=== PATIENT | male | born 1980 | race American Indian/Alaskan Native ===

== ENCOUNTER 2017-05-08 08:22 | Emergency (ER) | payer SELFPAY ==
[2017-05-08 08:23] VITALS: BMI 37.4
--- NOTE | 2017-05-08 08:50 | ED PDOC ---
Arrival/HPI - History of Present Illness Time/Duration: 1-3 hours Symptom Onset: Sudden Symptom Course: Unchanged Context: Walking <GonzalodoyleCrystal - Last Filed: 05/08/17 13:41> <Bo Preciado - Last Filed: 05/08/17 14:04> - General Time Seen by Provider: 05/08/17 08:25 - History of Present Illness Narrative History of Present Illness (Text): 36 year old male with no significant medical history presents for "dizziness" that began about 3 hours ago. Patient states that dizziness began all of a sudden when he was going to work. He describes dizziness as the room is spinning and he feels unsteady on his feet. Symptoms have not improved since they began. Patient has never experienced this before. Patient states that for past 2 weeks, he has had episodes of falling asleep at random times throughout the day lasting a few minutes. Patient also states that yesterday he had an episode of sharp MILES that lasted a few minutes and improved on its own. Patient denies having any MILES right now, no focal deficit, no speech changes, no vision or hearing changes, no tinnitus, no N/V/D/C, abd pain, CP. 05/08/17 09:14 (Crystal Paz) Past Medical History - Provider Review Nursing Documentation Reviewed: Yes - Past Medical History Past Medical History: No Previous - Psychiatric Hx Depression: No Hx Emotional Abuse: No Hx Physical Abuse: No - Past Surgical History Past Surgical History: No Previous - Suicidal Assessment Feels Threatened In Home Enviroment: No <Crystal Paz - Last Filed: 05/08/17 13:41> Family/Social History - Physician Review Nursing Documentation Reviewed: Yes Family/Social History: Unknown Family HX Smoking Status: Current Some Days Smoker Hx Alcohol Use: No Hx Substance Use: No <Amn Brandia - Last Filed: 05/08/17 13:41> Allergies/Home Meds <Amn Brandia - Last Filed: 05/08/17 13:41> <Bo Preciado - Last Filed: 05/08/17 14:04> Allergies/Adverse Reactions: Allergies No Known Allergies Allergy (Verified 05/08/17 08:34) Home Medications: Home Meds Medication Instructions Recorded Confirmed No Known Home Med 05/08/17 05/08/17 Review of Systems - Review of Systems Constitutional: Normal Eyes: Normal. absent: Vision Changes ENT: Normal. absent: Hearing Changes, Tinnitus, Sore Throat, Rhinorrhea Respiratory: Normal. absent: SOB, Cough Cardiovascular: Normal. absent: Chest Pain, Palpitations, Edema Gastrointestinal: Normal. absent: Abdominal Pain, Constipation, Diarrhea Genitourinary Male: Normal. absent: Dysuria, Frequency Musculoskeletal: Normal. absent: Neck Pain Skin: Normal. absent: Rash, Pruritis Neurological: Dizziness, Disequilibrium. absent: Headache, Gait Changes, Speech Changes, Facial Droop, Seizure Endocrine: Normal. absent: Diaphoresis Psychiatric: Normal. absent: Anxiety, Depression <Karim,Crystal - Last Filed: 05/08/17 13:41> Physical Exam Temperature: Afebrile Blood Pressure: Normal Pulse: Regular Respiratory Rate: Normal Appearance: Positive for: Well-Appearing, Non-Toxic, Comfortable Pain Distress: None Mental Status: Positive for: Alert and Oriented X 3 - Systems Exam Head: Present: Atraumatic, Normocephalic. No: Tenderness, Contusion Pupils: Present: PERRL Extroacular Muscles: Present: EOMI. No: Gaze Palsy Conjunctiva: Present: Normal. No: Injected, Icteric Mouth: Present: Moist Mucous Membranes. No: Dry, Drooling, Trismus, Normal Tounge Neck: Present: Normal Range of Motion. No: MIDLINE TENDERNESS, Paraspinal Tenderness, Lymphadenopathy Respiratory/Chest: Present: Clear to Auscultation, Good Air Exchange, Respiratory Distress, Accessory Muscle Use. No: Wheezes, Rales, Retracting, Rhonchi Cardiovascular: Present: Regular Rate and Rhythm, Normal S1, S2. No: Murmurs, Irregular Rhythm, Rub, Gallop Abdomen: Present: Normal Bowel Sounds. No: Tenderness, Distention, Peritoneal Signs Upper Extremity: Present: Normal Inspection. No: Cyanosis, Edema Lower Extremity: Present: Normal Inspection. No: Edema, CALF TENDERNESS Neurological: Present: GCS=15, CN II-XII Intact, Speech Normal, Motor Func Grossly Intact, Normal Sensory Function, Normal Cerebellar Funct, Gait Normal, Memory Normal, Normal 2Pt Descrimination Skin: Present: Warm, Dry, Normal Color. No: Rashes, Hot, Cold, Laceration Psychiatric: Present: Alert, Oriented x 3, Normal Insight, Normal Concentration , Normal Affect, Normal Mood. No: Anxious, Agitated <Crystal Paz - Last Filed: 05/08/17 13:41> Medical Decision Making Re-evaluation Time: 11:00 Reassessment Condition: Improved - Lab Interpretations I have reviewed the lab results: Yes - EKG Interpretation Interpreted by ED Physician: Yes Type: 12 lead EKG <Crystal Paz - Last Filed: 05/08/17 13:41> - Lab Interpretations I have reviewed the lab results: Yes - EKG Interpretation Interpreted by ED Physician: Yes Type: 12 lead EKG <Bo Preciado - Last Filed: 05/08/17 14:04> ED Course and Treatment: Will check EKG, CT head, CMP, CBC, urinalysis, UDS, cardiac troponins, finger stick and orthostatic Patient will be given Meclazine 25 mg po stat 05/08/17 09:22 05/08/17 11:05 CT of head is negative. Labs are WNL. EKG was NSR no ST changes. Patient was given Meclizine and 1L NS bolus. Patient states dizziness has improved. ( Crystal Paz) 05/08/17 09:31 In agreement with resident note, which includes further HPI details. Patient was seen and evaluated with resident, came up with plan and treatment together. Patient presents for "dizziness", unsteady on his feet, and headache. Plan: -- EKG -- Head CT -- Labs -- Urinalysis -- Finger stick -- Orthostatic -- Reassess and disposition EKG shows NSR at [address]-segment elevations, normal intervals, normal axis. Interpreted by me. 05/08/17 11:05 On reevaluation, patient no longer have dizziness. He is able to walk without ataxia. Will discharge patient home with PMD f/u. (Bo Preciado) - Lab Interpretations Lab Results: 05/08/17 09:20 05/08/17 09:20 Lab Results 05/08/17 09:20: WBC 7.9, RBC 4.95, Hgb 14.8, Hct 43.0, MCV 86.9, MCH 29.9, MCHC 34.4, RDW 13.3, Plt Count 230, MPV 9.2 05/08/17 09:20: Sodium 142, Potassium 3.8, Chloride 104, Carbon Dioxide 27, Anion Gap 15, BUN 11, Creatinine 0.6, Est GFR ( Amer) > 60, Est GFR (Non- Af Amer) > 60, Random Glucose 124 H, Calcium 9.1, Total Bilirubin 0.7, AST 26, ALT 27, Alkaline Phosphatase 73, Total Protein 7.4, Albumin 4.2, Globulin 3.2, Albumin/Globulin Ratio 1.3 - RAD Interpretation Radiology Orders: 05/08/17 09:00 HEAD W/O CONTRAST [CT] Stat - EKG Interpretation EKG Interpretation (Text): NSR HR [address] changes. Right superior axis deviation 05/08/17 09:23 (Crystal Paz) - Medication Orders Current Medication Orders: Discontinued Medications Sodium Chloride (Sodium Chloride 0.9%) 1,000 mls @ 999 mls/hr IV .Q1H1M STA Stop: 05/08/17 10:27 Last Admin: 05/08/17 09:49 Dose: 999 mls/hr Meclizine HCl (Antivert) 25 mg PO STAT STA Stop: 05/08/17 09:02 Last Admin: 05/08/17 09:29 Dose: 25 mg Disposition/Present on Arrival - Present on Arrival Any Indicators Present on Arrival: No History of DVT/PE: No History of Uncontrolled Diabetes: No Urinary Catheter: No History Surgical Site Infection Following: None - Disposition Have Diagnosis and Disposition been Completed?: Yes Disposition Time: 11:06 Patient Plan: Discharge <Crystal Paz - Last Filed: 05/08/17 13:41> <Bo Preciado - Last Filed: 05/08/17 14:04> - Disposition Diagnosis: Dizziness Disposition: HOME/ ROUTINE Condition: GOOD Additional Instructions: Gavino Guardado, thank you for letting us take care of you today. Your provider was Crystal Paz. You were treated for dizziness. The emergency medical care you received today was directed at your acute symptoms. If you were prescribed any medication, please fill it and take as directed. It may take several days for your symptoms to resolve. Return to the Emergency Department if your symptoms worsen, do not improve, or if you have any other problems. Please contact your doctor or call one of the physicians/clinics you have been referred to that are listed on the Patient Visit Information form that is included in your discharge packet. Bring any paperwork you were given at discharge with you along with any medications you are taking to your follow up visit. Our treatment cannot replace ongoing medical care by a primary care provider (PCP) outside of the emergency department. Thank you for allowing the [facility] team to be part of your care today. If you had an X-Ray or CT scan: A Radiologist will review the ED reading if any change in treatment is needed we will contact you. If you had a blood, urine, or wound culture: It will take several days for the results, if any change in treatment is needed we will contact you. If you had an STI test: It will take 48 hours for the results. Please call after 1 week if you have not heard back. Referrals: PCP,NO [Primary Care Provider] - Follow up with primary Forms: WORK NOTE
[2017-05-08] MEDS ORDERED: Sodium Chloride 0.9% 1,000 ML IV STA (09:27)
[2017-05-08 09:36] LABS: HEMOGLOBIN 14.8 gm/dL (14.0-18.0); MEAN CELL VOLUME 86.9 fL (80.0-105.0); MEAN CORPUSCULAR HEMOGLOBIN 29.9 pg (25.0-35.0); MEAN CORPUSCULAR HGB CONC 34.4 g/dl (31.0-37.0); MEAN PLATELET VOLUME 9.2 fl (7.0-11.0); RBC 4.95 10^6/uL (3.5-6.1); RED CELL DISTRIBUTION WIDTH 13.3 % (11.5-14.5); WHITE BLOOD COUNT 7.9 10^3/ul (4.5-11.0)
[2017-05-08 09:39] LABS: ALB/GLOB RATIO 1.3 (1.1-1.8); ALBUMIN 4.2 g/dL (3.0-4.8); ALT/SGPT 27 U/L (7-56); AST/SGOT 26 U/L (15-59); BLOOD UREA NITROGEN 11 mg/dL (7-21); CALCIUM 9.1 mg/dL (8.4-10.5); GFR AFRICAN-AMERICAN > 60; GFR NON-AFRICAN AMERICAN > 60
--- NOTE | 2017-05-08 09:53 | CT ---
PROCEDURE: CT HEAD WITHOUT CONTRAST. HISTORY: dizziness COMPARISON: None available. TECHNIQUE: Axial computed tomography images were obtained through the head/brain without intravenous contrast. Radiation dose: Total exam DLP = 734 mGy-cm. This CT exam was performed using one or more of the following dose reduction techniques: Automated exposure control, adjustment of the mA and/or kV according to patient size, and/or use of iterative reconstruction technique. FINDINGS: HEMORRHAGE: No intracranial hemorrhage. BRAIN: No mass effect or edema. No atrophy or chronic microvascular ischemic changes. VENTRICLES: Unremarkable. No hydrocephalus. CALVARIUM: Unremarkable. PARANASAL SINUSES: Unremarkable as visualized. No significant inflammatory changes. MASTOID AIR CELLS: Unremarkable as visualized. No inflammatory changes. OTHER FINDINGS: The report concurs with the preliminary [facility] report IMPRESSION: Normal CT of the Head.
[2017-05-08 11:38] VITALS: BP 110/65; PULSE 64; RESP 16; TEMP 98; O2SAT 100
--- NOTE | 2017-05-08 15:59 | CARD ---
APPROVED REPORT EKG Measurement Heart [id number] AL 144P [id number] <Conclusion> Normal sinus rhythm Limb lead reversal.
== END 2017-05-08 11:55 | disposition home or self-care (01) ==
LOC: ED 08:22
DX: R42 Dizziness and giddiness (principal)
CPT/HCPCS: 70450; 80053; 82948; 85027; 93005; 96360; 99285; J7040

== ENCOUNTER 2018-07-17 15:59 | Emergency (ER) | payer BC ==
[2018-07-17 16:00] VITALS: BMI 37.4
[2018-07-17 16:11] VITALS: RESP 18; TEMP 99
--- NOTE | 2018-07-17 16:40 | ED PDOC ---
Arrival/HPI - General Historian: Patient - History of Present Illness Narrative History of Present Illness (Text): 07/17/18 16:37 Patient is a47yo male with no pmhx who present with complaint of lower back pain x 2days that radiates to his right lower leg. He reports history of same pain. states he was given epidural 3years ago and the pain resolved and then started again 2days ago. States he went to his PMD's office for pain medication, but he was permanently closed. he denies trauma, focal weakness, urinary symptoms, saddle anesthesia, urinary symptoms, abdominal pain, any other complaint. <Siri Hummel A - Last Filed: 07/17/18 16:37> <Eric Mayorga - Last Filed: 07/24/18 05:37> - General Chief Complaint: Back Pain Time Seen by Provider: 07/17/18 16:21 Past Medical History - Provider Review Nursing Documentation Reviewed: Yes - Infectious Disease Hx of Infectious Diseases: None - Past Medical History Past Medical History: No Previous - Psychiatric Hx Depression: No Hx Emotional Abuse: No Hx Physical Abuse: No Hx Substance Use: No - Past Surgical History Past Surgical History: No Previous - Suicidal Assessment Feels Threatened In Home Enviroment: No <DiruHappiness A - Last Filed: 07/17/18 16:37> Family/Social History - Physician Review Nursing Documentation Reviewed: Yes Family/Social History: Unknown Family HX Smoking Status: Current Some Days Smoker Hx Alcohol Use: Yes Hx Substance Use: No <DiruHappiness A - Last Filed: 07/17/18 16:37> Allergies/Home Meds <ShaheedHappiness A - Last Filed: 07/17/18 16:37> <Eric Mayorga - Last Filed: 07/24/18 05:37> Allergies/Adverse Reactions: Allergies No Known Allergies Allergy (Verified 05/08/17 08:34) Review of Systems - Physician Review All systems were reviewed & negative as marked: Yes - Review of Systems Constitutional: Normal Eyes: Normal ENT: Normal Respiratory: Normal Cardiovascular: Normal Gastrointestinal: Normal Genitourinary Male: Normal Musculoskeletal: Back Pain Skin: Normal Neurological: Normal Endocrine: Normal Hemo/Lymphatic: Normal Psychiatric: Normal <DiruHappiness A - Last Filed: 07/17/18 16:37> Physical Exam Vital Signs Reviewed: Yes Vital Signs Temp Pulse Resp BP Pulse Ox 07/17/18 16:08 99 F 78 18 125/70 99 Temperature: Afebrile Blood Pressure: Normal Pulse: Regular Respiratory Rate: Normal Appearance: Positive for: Well-Appearing, Non-Toxic, Comfortable Pain Distress: None Mental Status: Positive for: Alert and Oriented X 3 - Systems Exam Head: Present: Atraumatic, Normocephalic Pupils: Present: PERRL Extroacular Muscles: Present: EOMI Conjunctiva: Present: Normal Mouth: Present: Moist Mucous Membranes Neck: Present: Normal Range of Motion Respiratory/Chest: Present: Clear to Auscultation, Good Air Exchange. No: Respiratory Distress, Accessory Muscle Use Cardiovascular: Present: Regular Rate and Rhythm, Normal S1, S2. No: Murmurs Abdomen: No: Tenderness, Distention, Peritoneal Signs Back: Present: Paraspinal Tenderness (Lower paralumar tenderness), Pain with Leg Raise (right leg) Upper Extremity: Present: Normal Inspection. No: Cyanosis, Edema Lower Extremity: Present: Normal Inspection. No: Edema Neurological: Present: GCS=15, CN II-XII Intact, Speech Normal Skin: Present: Warm, Dry, Normal Color. No: Rashes Psychiatric: Present: Alert, Oriented x 3, Normal Insight, Normal Concentration <Siri Hummel A - Last Filed: 07/17/18 16:37> Vital Signs Temp Pulse Resp BP Pulse Ox 07/17/18 17:52 76 18 131/76 98 07/17/18 16:08 99 F 78 18 125/70 99 <Eric Mayorga - Last Filed: 07/24/18 05:37> Medical Decision Making ED Course and Treatment: 07/17/18 16:41 Pt presented to ED for stated history. He was neurologically intact. Ambulatory in ED He reported chronic history of lower back pain. His pain will be controlled with medication in ED He will be DC home with Naprosyn and flexeril and referred to ortho <ShaheedHappiness A - Last Filed: 07/17/18 16:37> ED Course and Treatment: 07/24/18 05:37 The documented history was done by the physician steam setter. The documented physical exam was done by the physician steam setter. The documented procedures were done by the physician steam setter, I was available for consultation during the PA/WEATHERIZATION SPECIALIST evaluation. The chart was reviewed by me, and I agree with the management and plan. - Medication Orders Current Medication Orders: Discontinued Medications Cyclobenzaprine HCl (Flexeril) 10 mg PO STAT STA Stop: 07/17/18 16:38 Last Admin: 07/17/18 16:53 Dose: Not Given Non-Admin Reason: Patient Refused Ibuprofen (Motrin Tab) 600 mg PO STAT STA Stop: 07/17/18 17:03 Last Admin: 07/17/18 17:24 Dose: 600 mg Ketorolac Tromethamine (Toradol) 60 mg IM STAT STA Stop: 07/17/18 16:38 Last Admin: 07/17/18 16:57 Dose: Not Given Non-Admin Reason: Patient Refused <Eric Mayorga - Last Filed: 07/24/18 05:37> Disposition/Present on Arrival - Present on Arrival Any Indicators Present on Arrival: No History of DVT/PE: No History of Uncontrolled Diabetes: No Urinary Catheter: No History of Decub. Ulcer: No History Surgical Site Infection Following: None - Disposition Have Diagnosis and Disposition been Completed?: Yes Disposition Time: 16:45 Patient Plan: Discharge <Siri Hummel - Last Filed: 07/17/18 16:37> <Eric Mayorga - Last Filed: 07/24/18 05:37> - Disposition Diagnosis: Chronic back pain Disposition: HOME/ ROUTINE Condition: STABLE Discharge Instructions (ExitCare): Low Back Pain (DC) Additional Instructions: Follow up with your doctor/orthopedist Return to Ed for any new or worsening symptoms Prescriptions: Cyclobenzaprine [Cyclobenzaprine HCl] 10 mg PO BID #10 tab Naproxen [Naprosyn] 500 mg PO BID #20 tab Referrals: Popeye Soares MD [Staff Provider] - Follow up with primary Forms: [employer] (Telugu), WORK NOTE
[2018-07-17 17:53] VITALS: BP 131/76; PULSE 76; O2SAT 98
== END 2018-07-17 17:52 | disposition home or self-care (01) ==
LOC: ED 15:59
DX: M54.5 Low back pain (principal); G89.29 Other chronic pain